=== PATIENT | male | born 1990 | race Caucasian/White ===

== ENCOUNTER 2022-01-11 20:51 | Emergency (ER) | payer OTHER ==
[~2022-01-11] VITALS: Ht 175.3 cm; Wt 79.4 kg
[2022-01-11 22:00] VITALS: BP 142/84
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
[2022-01-11] MEDS ORDERED: KETO10TA2 PO (23:35)
--- NOTE | 2022-01-12 00:25 | NUR ---
Patient discharged to home in stable condition. Written and verbal after care instructions given. Patient verbalizes understanding of instruction.
== END 2022-01-12 00:25 | disposition home or self-care (01) ==
LOC: ER 20:56
DX: S92.515A Nondisplaced fracture of proximal phalanx of left lesser toe(s), initial encounter for closed fracture (principal); Z88.0 Allergy status to penicillin; W22.8XXA Striking against or struck by other objects, initial encounter; Y93.01 Activity, walking, marching and hiking; Y92.89 Other specified places as the place of occurrence of the external cause; Y99.8 Other external cause status
CPT/HCPCS: 73630; 99283; A6403